=== PATIENT | male | born 1990 | race Caucasian/White ===

== ENCOUNTER 2017-01-29 14:59 | Emergency (ER) | payer OTHER ==
[2017-01-29] MEDS ORDERED: SODIUM CHLORIDE 0.9% 1,000 ML IV STA ×2 (15:56)
[2017-01-29] MEDS ORDERED: ONDANSETRON ODT 4 MG TAB PO STA (15:56)
[2017-01-29] MEDS ORDERED: DIPH,PERTUS(ACELL)TETVAC-LF 0.5 ML VIAL IM ONE (16:02)
[2017-01-29] MEDS ORDERED: ceFAZolin 1,000 MG in DEXTROSE/WATER 1 50ML.BAG IVPB STA (16:02)
--- NOTE | 2017-01-29 16:06 | ED ---
General Adult HPI - General Chief complaint: Wound/Laceration Stated complaint: lac left arm Time Seen by Provider: 01/29/17 15:55 Source: patient, RN notes reviewed Mode of arrival: ambulatory Limitations: no limitations - History of Present Illness Initial comments: Patient 26-year-old male who presents emergency room today with chief complaint of laceration to the left forearm. He does admit that he was helping a friend with a piece of sheet metal when it actually caused a laceration to the volar aspect. He does admit that he immediately put pressure and covered the area. He states is unsure of his tetanus status. He does admit that he is feeling somewhat lightheaded dizzy at this time. He denies any other complaints or symptoms. Patient denies any recent fever, chills, shortness of breath, chest pain, back pain, abdominal pain, nausea or vomiting, numbness or tingling, dysuria or hematuria, constipation or diarrhea, headaches or visual changes, or any other complaints. - Related Data Home Medications Medication Instructions Recorded Confirmed No Known Home Medications [No 01/29/17 01/29/17 Known Home Medications] Allergies Allergy/AdvReac Type Severity Reaction Status Date / Time Penicillins Allergy Unknown Verified 01/29/17 16:09 Review of Systems ROS Statement: Those systems with pertinent positive or pertinent negative responses have been documented in the HPI. ROS Other: All systems not noted in ROS Statement are negative. Past Medical History Past Medical History: No Reported History History of Any Multi-Drug Resistant Organisms: None Reported Past Surgical History: Orthopedic Surgery Additional Past Surgical History / Comment(s): left knee Past Psychological History: No Psychological Hx Reported Smoking Status: Current every day smoker Past Alcohol Use History: Occasional Past Drug Use History: Marijuana General Exam - General Exam Comments Initial Comments: General: The patient is awake and alert, in no distress, and does not appear acutely ill. Eye: Pupils are equal, round and reactive to light, extra-ocular movements are intact. No nystagmus. There is normal conjunctiva bilaterally. No signs of icterus. Ears, nose, mouth and throat: There are moist mucous membranes and no oral lesions. Neck: The neck is supple, there is no tenderness or JVD. Cardiovascular: There is a regular rate and rhythm. No murmur, rub or gallop is appreciated. Respiratory: Lungs are clear to auscultation, respirations are non-labored, breath sounds are equal. No wheezes, stridor, rales, or rhonchi. Musculoskeletal: Does have a urgent linear laceration to the volar aspect of her left wrist. There is exposed tendons. No active bleeding currently. Faint distal radial pulse. Cap refill less than 2 seconds. Sensations intact. Patient does show some range of motion with both flexion and extension at the left wrist. Does show some decreased flexion and extension at the fourth and fifth digits. Strength 5/5. Sensation intact. Neurological: A&O x 3. CN II-XII intact, There are no obvious motor or sensory deficits. Coordination appears grossly intact. Speech is normal. Skin: Skin is warm and dry and no rashes or lesions are noted. Psychiatric: Cooperative, appropriate mood & affect, normal judgment. Limitations: no limitations Course Vital Signs 01/29/17 15:03 Temperature 98.1 F Pulse Rate 63 Respiratory 18 Rate Blood Pressure 118/56 O2 Sat by Pulse 98 Oximetry - Reevaluation(s) Reevaluation #1: 01/29/17 16:18 Physician assistant public defender Jesus Manuel Soliz and was at bedside to evaluate patient and will contact hand specialist. 01/29/17 16:40 Physician assistant public defender Jesus Manuel Soliz and did speak with orthopedic butcher scullion who recommends transfer for hand specialist. 01/29/17 16:45 Case was discussed with Arthur Sood will accept the patient being transferred by EMS. Medical Decision Making - Medical Decision Making Patient 26-year-old male presenting today with a laceration to the left forearm. Does show extensive tendon lacerations he does have decreased range of motion of the second through fifth digits with flexion. Case was discussed and seen by orthopedics here in the emergency room and recommended transfer for hand specialty. Patient did have IV started given 500 mL bolus along with 1 g of Ancef. Patient's tetanus updated here in emergency room. Patient has been updated of need for transfer is aware of the plan. - Lab Data Result diagrams: 01/29/17 16:04 01/29/17 16:04 Lab Results 01/29/17 01/29/17 01/29/17 Range/Units 16:04 16:04 16:04 WBC 16.4 H (3.8-10.6) k/uL RBC 4.12 L (4.30-5.90) m/uL Hgb 13.9 (13.0-17.5) gm/dL Hct 38.2 L (39.0-53.0) % MCV 92.5 (80.0-100.0) fL MCH 33.8 (25.0-35.0) pg MCHC 36.5 (31.0-37.0) g/dL RDW 12.0 (11.5-15.5) % Plt Count 278 (150-450) k/uL Neutrophils % 86 % Lymphocytes % 8 % Monocytes % 4 % Eosinophils % 1 % Basophils % 1 % Neutrophils # 14.1 H (1.3-7.7) k/uL Lymphocytes # 1.3 (1.0-4.8) k/uL Monocytes # 0.6 (0-1.0) k/uL Eosinophils # 0.1 (0-0.7) k/uL Basophils # 0.1 (0-0.2) k/uL PT 10.6 (9.0-12.0) sec INR 1.0 (<1.1) APTT 23.0 (22.0-30.0) sec Sodium 139 (137-145) mmol/L Potassium 3.8 (3.5-5.1) mmol/L Chloride 101 (98-107) mmol/L Carbon Dioxide 28 (22-30) mmol/L Anion Gap 10 mmol/L BUN 18 (9-20) mg/dL Creatinine 0.80 (0.66-1.25) mg/dL Est GFR (MDRD) Af Amer >60 (>60 ml/min/1.73 sqM) Est GFR (MDRD) Non-Af >60 (>60 ml/min/1.73 sqM) Glucose 85 (74-99) mg/dL Calcium 9.9 (8.4-10.2) mg/dL Total Bilirubin 0.7 (0.2-1.3) mg/dL AST 23 (17-59) U/L ALT 31 (21-72) U/L Alkaline Phosphatase 49 (38-126) U/L Total Protein 6.9 (6.3-8.2) g/dL Albumin 4.7 (3.5-5.0) g/dL Disposition Clinical Impression: Flexor tendon laceration of forearm with open wound, Laceration Disposition: OTHER INSTITUTION NOT DEFINED Condition: Stable Referrals: Jose De Jesus Shaffer III, MD [Primary Care Provider] - 1-2 days Time of Disposition: 16:46 (Transferred to [facility] by EMS) - Out of Hospital Transfer - Req. Specs Out of Hospital Transfer - Requested Specifics: Other Emergency Center ([facility])
[2017-01-29 16:20] LABS: Basophils # (A) 0.1 k/uL (0-0.2); Basophils % (A) 1 %; CH 33.6; CHCM 36.5; Eosinophils # (A) 0.1 k/uL (0-0.7); Eosinophils % (A) 1 %; HCT 38.2 % (39.0-53.0); HDW 2.46; HGB 13.9 gm/dL (13.0-17.5); Luc # (Auto) 0.17; Luc % (Auto) 1; Lymphocytes # (A) 1.3 k/uL (1.0-4.8); Lymphocytes % (A) 8 %; MCH 33.8 pg (25.0-35.0); MCHC 36.5 g/dL (31.0-37.0); MCV 92.5 fL (80.0-100.0); Mean Platelet Volume 7.8; Monocytes # (A) 0.6 k/uL (0-1.0); Monocytes % (A) 4 %; Neutrophils # (A) 14.1 k/uL (1.3-7.7); Neutrophils % (A) 86 %; RBC 4.12 m/uL (4.30-5.90); WBC 16.4 k/uL (3.8-10.6); WBC (Perox) 15.65
[2017-01-29 16:25] LABS: Prothrombin Time 10.6 sec (9.0-12.0)
[2017-01-29 16:26] LABS: ALT 31 U/L (21-72); AST 23 U/L (17-59); Alkaline Phosphatase 49 U/L (38-126); Anion Gap 10 mmol/L; Blood Urea Nitrogen 18 mg/dL (9-20); Calcium 9.9 mg/dL (8.4-10.2); Carbon Dioxide 28 mmol/L (22-30); Chloride 101 mmol/L (98-107); Glucose 85 mg/dL (74-99); Non-African American GFR(MDRD) >60 (>60 ml/min/1.73 sqM); Potassium 3.8 mmol/L (3.5-5.1); Sodium 139 mmol/L (137-145); Total Bilirubin 0.7 mg/dL (0.2-1.3); Total Protein 6.9 g/dL (6.3-8.2)
[2017-01-29 17:54] VITALS: BP 132/61; PULSE 60; RESP 18; TEMP 98.3
== END 2017-01-29 17:50 | disposition short-term general hospital (02) ==
LOC: EC 14:59
DX: S56.222A Laceration of other flexor muscle, fascia and tendon at forearm level, left arm, initial encounter (principal); F17.200 Nicotine dependence, unspecified, uncomplicated; Z88.0 Allergy status to penicillin; W26.8XXA Contact with other sharp object(s), not elsewhere classified, initial encounter; Y93.89 Activity, other specified
CPT/HCPCS: 99284; 96365; 90471; 96361; 36415; 80053; 85025; 85610; 85730; 90715; J0690

== ENCOUNTER 2019-03-07 10:45 | Day surgery (SDC) | payer BC, OTHER ==
[2019-02-28 12:50] VITALS: BMI 24.3
--- NOTE | 2019-03-06 11:50 | P.GSHP ---
History of Present Illness H&P Date: 03/06/19 Chief Complaint: Right renal colic The patient is a 28-year-old white male with no prior history of urolithiasis. He presents with a one-month history of intermittent right flank pain radiating to the right lower quadrant. A computed tomography scan on February 04 showed a 5 mm right renal pelvic calculus, and this was seen on a plain radiograph on February 16. Alternative treatment options were reviewed, and he has elected to undergo ESWL. - Constitutional Constitutional: Denies chills, Denies fever - Gastrointestinal Gastrointestinal: Reports nausea, Reports vomiting - Genitourinary (Female) Genitourinary: Reports hematuria, Reports kidney stones Past Medical History Past Medical History: No Reported History Additional Past Medical History / Comment(s): KIDNEY STONES History of Any Multi-Drug Resistant Organisms: None Reported Past Surgical History: Orthopedic Surgery Additional Past Surgical History / Comment(s): left knee SX. LT WRIST RECONSTRUCTIVE SX Past Anesthesia/Blood Transfusion Reactions: Postoperative Nausea & Vomiting (PONV) Smoking Status: Current every day smoker - Past Family History Mother Family Medical History: No Reported History Medications and Allergies Home Medications Medication Instructions Recorded Confirmed Type No Known Home Medications 01/29/17 01/29/17 History Allergies Allergy/AdvReac Type Severity Reaction Status Date / Time Penicillins Allergy Unknown Verified 02/28/19 12:41 Surgical - Exam - General well developed, well nourished, no distress - Neck no masses, trachea midline - Respiratory normal respiratory effort, clear to auscultation - Cardiovascular Rhythm: regular Abnormal Heart Sounds: no systolic murmur, no diastolic murmur, no rub, no S3 Gallop, no S4 Gallop, no click, no other - Abdomen Abdomen: soft, non tender, no guarding, no rigid, no rebound - Genitourinary normal penis with no external lesions, testicles non-tender - Psychiatric oriented to time, oriented to person, oriented to place, speech is normal, memory intact Results - Imaging Abdominal x-ray: report reviewed, image reviewed CT scan - abdomen: report reviewed, image reviewed Assessment and Plan (1) Calculus of kidney Status: Acute Code(s): N20.0 - CALCULUS OF KIDNEY SNOMED Code(s): 65410933 Plan: Right extracorporal shockwave lithotripsy (ESWL). The procedure is been reviewed in detail with the patient. Potential risks were reviewed, which include anesthesia, hematuria, renal contusion, perinephric hematoma, treatment failure, incomplete fragmentation, and [place]strasse. He is aware of the possible need for secondary treatment.
[~2019-03-07 10:45] MED LIST: Pre Op ABX Message 1 EACH MISC MISCELLANE ONE
[2019-03-07 11:09] VITALS: TEMP 97.8
[2019-03-07] MEDS ORDERED: LACTATED RINGERS 1,000 ML IV ONE (11:09)
[2019-03-07] MEDS ORDERED: LIDOCAINE 1% 20 ML VIAL (10MG/ML) FOR IV START INTRADERMA ONE (11:09)
[2019-03-07] MEDS ORDERED: ONDANSETRON 4 MG/2 ML VIAL IVP ONE (11:16)
--- NOTE | 2019-03-07 11:37 | XR ---
EXAMINATION TYPE: XR KUB DATE OF EXAM: 03/07/2019 CLINICAL DATA: 28-year-old male preop, [facility] COMPARISON: None FINDINGS: Nonobstructive bowel gas pattern. No significant stool burden. 8 mm calcification density at the right paramedian mid abdomen. IMPRESSION: An 8 mm calculus at the right paramedian mid abdomen could be in the upper right ureter.
[2019-03-07] MEDS ORDERED: fentaNYL (PF) 50 MCG/ML 2 ML AMP ONE (12:40)
[2019-03-07] MEDS ORDERED: PROPOFOL 10 MG/ML 20 ML VIAL IV ONE (12:40)
[2019-03-07] MEDS ORDERED: MIDAZOLAM 2 MG/2 ML VIAL ONE (12:40)
--- NOTE | 2019-03-07 13:27 | P.OP ---
Date of Procedure: 03/07/19 Preoperative Diagnosis: Right renal calculus Postoperative Diagnosis: Right renal calculus Procedure(s) Performed: Extracorporeal shockwave lithotripsy of right renal calculus Anesthesia: MAC Surgeon: Marcin Reina Urine output (ml): 0 Pathology: none sent Condition: stable Disposition: PACU Indications for Procedure: The patient is a 28-year-old male with intermittent right flank pain secondary to a 5 mm calculus located in the region of the right renal pelvis. Treatment o ptions were reviewed with Dr. Kwong and the patient has elected to proceed with ESWL. Description of Procedure: The patient was taken the operating suite and placed in the supine position on the fluoroscopy table. The right renal calculus was localized using biplanar fluoroscopy. Intravenous sedation was given. Lithotripsy was performed using the Dornier compact delta unit. Patient received 2500 shocks at level 5 at a rate of 80 shocks per minute. A 2 minute pause was taken after 200 shocks. There appeared to be good fragmentation of the calculus. The patient was returned to the recovery room in satisfactory condition following procedure. He will be seen by Dr. Kwong in 1 week at which time a KUB will be obtained.
[2019-03-07 14:13] VITALS: BP 118/75; PULSE 52; RESP 16
== END 2019-03-07 14:15 | disposition home or self-care (01) ==
LOC: ORWHC2ENDO 10:45
PROVIDERS: ATTEND Urology
DX: N20.0 Calculus of kidney (principal); K21.9 Gastro-esophageal reflux disease without esophagitis; F17.210 Nicotine dependence, cigarettes, uncomplicated; Z79.899 Other long term (current) drug therapy; Z88.0 Allergy status to penicillin
CPT/HCPCS: 50590; 74018; J2250; J2405; J3010; J2704

== ENCOUNTER → 2019-03-13 | Outpatient (CLI) | payer BC ==
--- NOTE | 2019-03-13 15:26 | XR ---
EXAMINATION TYPE: XR abdomen 1V DATE OF EXAM: 03/13/2019 COMPARISON: 03/07/2019 HISTORY: Renal calculus. Pain. TECHNIQUE: Single view FINDINGS: There is no sign of intestinal obstruction or pneumoperitoneum. Fecal pattern is normal. I see no pathologic calcifications over the kidneys. IMPRESSION: Nonacute abdomen. There is clearing of calcification over the right upper quadrant compar ed to last exam.
== END | disposition home or self-care (01) ==
LOC: RADXRMAIN 14:53
PROVIDERS: ATTEND Urology
DX: N20.0 Calculus of kidney (principal)
CPT/HCPCS: 74018

== ENCOUNTER 2019-09-09 07:34 | Emergency (ER) | payer BC, OTHER ==
[2019-09-09 07:39] VITALS: TEMP 97.8
[2019-09-09] MEDS ORDERED: FAMOTIDINE 20 MG/2 ML VIAL IV STA (07:44)
[2019-09-09] MEDS ORDERED: DICYCLOMINE 10 MG/ML 2 ML AMP IM STA (07:44)
[2019-09-09] MEDS ORDERED: SODIUM CHLORIDE 0.9% 2,000 ML IV STA (07:44)
[2019-09-09] MEDS ORDERED: METOCLOPRAMIDE 5 MG/ML 2 ML VIAL IVP STA (07:44)
--- NOTE | 2019-09-09 07:53 | ED ---
General Adult HPI - General Chief complaint: Abdominal Pain Stated complaint: vomiting Time Seen by Provider: 09/09/19 07:40 Source: patient, RN notes reviewed Mode of arrival: ambulatory Limitations: no limitations - History of Present Illness Initial comments: Patient is a pleasant 29-year-old male presenting to the emergency Department with complaints of nausea vomiting and some diarrhea. Onset of symptoms was around 3:30. Patient questions if he could've had some bad chicken soup last night. Patient did have similar symptoms last year and was diagnosed with ordering failure. Patient also had similar symptoms in either 2004 for 2009 while in [facility] and was diagnosed with rhabdomyolysis. Patient has vomited approximately 10 times. Patient has had approximately 4 episodes of vomiting. Patient has some mild discomfort of the upper abdomen, more on the right side. - Related Data Home Medications Medication Instructions Recorded Confirmed Tamsulosin HCl [Flomax] 0.4 mg PO DAILY 03/07/19 03/07/19 Previous Rx's Medication Instructions Recorded Ondansetron Odt [Zofran Odt] 4 mg PO Q8HR PRN #10 tab 09/09/19 Allergies Allergy/AdvReac Type Severity Reaction Status Date / Time Penicillins Allergy Unknown Verified 09/09/19 07:35 Review of Systems ROS Statement: Those systems with pertinent positive or pertinent negative responses have been documented in the HPI. ROS Other: All systems not noted in ROS Statement are negative. Constitutional: Denies: fever Eyes: Denies: eye pain ENT: Denies: ear pain Respiratory: Denies: cough Cardiovascular: Denies: chest pain Endocrine: Denies: fatigue Gastrointestinal: Reports: as per HPI, nausea, vomiting, diarrhea Genitourinary: Denies: dysuria Musculoskeletal: Denies: back pain Skin: Denies: rash Neurological: Denies: weakness Past Medical History Past Medical History: No Reported History Additional Past Medical History / Comment(s): KIDNEY STONES History of Any Multi-Drug Resistant Organisms: None Reported Past Surgical History: Orthopedic Surgery Additional Past Surgical History / Comment(s): left knee SX. LT WRIST RECONSTRUCTIVE SX Past Anesthesia/Blood Transfusion Reactions: Postoperative Nausea & Vomiting (PONV) Past Psychological History: No Psychological Hx Reported Smoking Status: Current every day smoker Past Alcohol Use History: None Reported Past Drug Use History: Marijuana - Past Family History Mother Family Medical History: No Reported History General Exam Limitations: no limitations General appearance: alert, in no apparent distress Head exam: Present: normocephalic Eye exam: Present: normal appearance Neck exam: Present: normal inspection Respiratory exam: Present: normal lung sounds bilaterally Cardiovascular Exam: Present: regular rate, normal rhythm Expanded Peripheral pulses: 2+: Posterior Tibialis (R), Posterior Tibialis (L), Dorsalis Pedis (R), Dorsalis Pedis (L) GI/Abdominal exam: Present: soft, tenderness (Mild epigastric and right upper quadrant tenderness to palpation). Absent: distended Extremities exam: Present: normal inspection Neurological exam: Present: alert Psychiatric exam: Present: normal affect, normal mood Skin exam: Present: normal color Course Vital Signs 09/09/19 09/09/19 07:35 09:24 Temperature 97.8 F Pulse Rate 51 L 53 L Respiratory 18 16 Rate Blood Pressure 128/74 101/49 O2 Sat by Pulse 100 99 Oximetry Medical Decision Making - Medical Decision Making Patient reevaluated and feeling much better. Patient is comfortable with discharge home. Abdomen soft and nontender. Patient updated on results and need for follow-up. Patient is agreeable to Zofran prescription. - Lab Data Result diagrams: 09/09/19 07:55 09/09/19 07:55 Lab Results 09/09/19 09/09/19 09/09/19 Range/Units 07:55 07:55 07:55 WBC 19.0 H (3.8-10.6) k/uL RBC 4.84 (4.30-5.90) m/uL Hgb 16.0 (13.0-17.5) gm/dL Hct 47.5 (39.0-53.0) % MCV 98.2 (80.0-100.0) fL MCH 33.2 (25.0-35.0) pg MCHC 33.8 (31.0-37.0) g/dL RDW 11.8 (11.5-15.5) % Plt Count 248 (150-450) k/uL Neutrophils % 93 % Lymphocytes % 3 % Monocytes % 2 % Eosinophils % 1 % Basophils % 0 % Neutrophils # 17.6 H (1.3-7.7) k/uL Lymphocytes # 0.5 L (1.0-4.8) k/uL Monocytes # 0.4 (0-1.0) k/uL Eosinophils # 0.2 (0-0.7) k/uL Basophils # 0.0 (0-0.2) k/uL PT 10.0 (9.0-12.0) sec INR 1.0 (<1.2) APTT 23.1 (22.0-30.0) sec Sodium 140 (137-145) mmol/L Potassium 5.0 (3.5-5.1) mmol/L Chloride 102 (98-107) mmol/L Carbon Dioxide 28 (22-30) mmol/L Anion Gap 10 mmol/L BUN 22 H (9-20) mg/dL Creatinine 0.75 (0.66-1.25) mg/dL Est GFR (CKD-EPI)AfAm >90 (>60 ml/min/1.73 sqM) Est GFR (CKD-EPI)NonAf >90 (>60 ml/min/1.73 sqM) Glucose 99 (74-99) mg/dL Calcium 10.1 (8.4-10.2) mg/dL Total Bilirubin 1.3 (0.2-1.3) mg/dL AST 34 (17-59) U/L ALT 21 (4-49) U/L Alkaline Phosphatase 51 (38-126) U/L Creatine Kinase 398 H (55-170) U/L Total Protein 8.5 H (6.3-8.2) g/dL Albumin 5.3 H (3.5-5.0) g/dL Amylase 104 (30-110) U/L Lipase 237 (23-300) U/L - Radiology Data Radiology results: image reviewed (Abdominal x-ray shows some air-fluid levels without bowel distention. Correlate for ileus or enteritis.) Disposition Clinical Impression: Vomiting Disposition: HOME SELF-CARE Condition: Stable Instructions (If sedation given, give patient instructions): Acute Nausea and Vomiting (ED) Additional Instructions: Please follow-up with primary care physician in the next couple days for recheck. Return for uncontrolled vomiting, increased abdominal discomfort, fevers, worsening symptoms or other concerns. Prescription sent to [facility] pharmacy Prescriptions: Ondansetron Odt [Zofran Odt] 4 mg PO Q8HR PRN #10 tab PRN Reason: Nausea Is patient prescribed a controlled substance at d/c from ED?: No Referrals: Rogelio Fong MD [Primary Care Provider] - 1-2 days Time of Disposition: 09:35
[2019-09-09 08:10] LABS: Basophils % (A) 0 %; Eosinophils # (A) 0.2 k/uL (0-0.7); Eosinophils % (A) 1 %; HCT 47.5 % (39.0-53.0); Lymphocytes # (A) 0.5 k/uL (1.0-4.8); Lymphocytes % (A) 3 %; MCH 33.2 pg (25.0-35.0); MCHC 33.8 g/dL (31.0-37.0); MCV 98.2 fL (80.0-100.0); Mean Platelet Volume 7.7; Monocytes # (A) 0.4 k/uL (0-1.0); Monocytes % (A) 2 %; Neutrophils # (A) 17.6 k/uL (1.3-7.7); Neutrophils % (A) 93 %; Platelet Count 248 k/uL (150-450); RBC 4.84 m/uL (4.30-5.90); RDW 11.8 % (11.5-15.5)
[2019-09-09 08:14] LABS: ALT 21 U/L (4-49); AST 34 U/L (17-59); African American GFR (CKD) >90 (>60 ml/min/1.73 sqM); Albumin 5.3 g/dL (3.5-5.0); Alkaline Phosphatase 51 U/L (38-126); Amylase 104 U/L (30-110); Anion Gap 10 mmol/L; Blood Urea Nitrogen 22 mg/dL (9-20); Calcium 10.1 mg/dL (8.4-10.2); Carbon Dioxide 28 mmol/L (22-30); Chloride 102 mmol/L (98-107); Creatine Kinase 398 U/L (55-170); Glucose 99 mg/dL (74-99); Non-African American GFR(CKD) >90 (>60 ml/min/1.73 sqM); Sodium 140 mmol/L (137-145); Total Bilirubin 1.3 mg/dL (0.2-1.3); Total Protein 8.5 g/dL (6.3-8.2)
[2019-09-09 08:16] LABS: Partial Thromboplastin Time 23.1 sec (22.0-30.0)
--- NOTE | 2019-09-09 08:34 | XR ---
KUB HISTORY: Right upper quadrant pain with nausea Frontal KUB and 2 images correlated to prior abdomen dated 03/13/2019 Lung bases are clear. There is no pathologic calcification. There are air-fluid levels without bowel distention. No pneumoperitoneum. Bone mineralization is normal. IMPRESSION: Correlate for ileus, enteritis.
[2019-09-09 09:06] LABS: Appearance,Urine Clear (Clear); Bilirubin,Urine Negative (Negative); Blood,Urine Negative (Negative); Color,Urine Orange; Glucose,Urine (UA) Negative (Negative); Hyaline Casts,Urine 15 /lpf (0-2); Ketones,Urine 2+ (Negative); Leukocyte Esterase,Urine Negative (Negative); Mucus,Urine Many /hpf; Nitrite,Urine Negative (Negative); Protein,Urine 2+ (Negative); Specific Gravity,Urine 1.039 (1.001-1.035); Squamous Epithelial Cell,Urine 1 /hpf (0-4); WBC,Urine 1 /hpf (0-5)
[2019-09-09 09:31] VITALS: BP 101/49; PULSE 53; RESP 16
== END 2019-09-09 09:52 | disposition home or self-care (01) ==
LOC: EC 07:34
DX: R11.2 Nausea with vomiting, unspecified (principal); R19.7 Diarrhea, unspecified; R10.9 Unspecified abdominal pain; F17.200 Nicotine dependence, unspecified, uncomplicated; Z88.0 Allergy status to penicillin; Z87.442 Personal history of urinary calculi
CPT/HCPCS: 36415; 80053; 82150; 82550; 83690; 85025; 85610; 85730; 81001; 74018; 99284; 96374; 96375; 96372; 96361 ×2; J0500; J2765

== ENCOUNTER 2023-11-28 11:03 | Emergency (ER) | payer OTHER ==
[2023-11-28 11:15] VITALS: RESP 18
--- NOTE | 2023-11-28 11:25 | ED ---
Wound/Laceration HPI - General Chief Complaint: Wound/Laceration Stated Complaint: L finger lac Time Seen by Provider: 11/28/23 11:14 Source: patient, RN notes reviewed Mode of arrival: ambulatory Limitations: no limitations - History of Present Illness Initial Comments: This is a 33-year-old male who presents to the emergency department for a laceration to the left index finger. States that he became frustrated and threw a roof shar, and the hook of it went through his left index finger. This is very painful. Tetanus vaccine is up-to-date. - Related Data Home Medications Medication Instructions Recorded Confirmed Tamsulosin HCl [Flomax] 0.4 mg PO DAILY 03/07/19 03/07/19 Previous Rx's Medication Instructions Recorded Ondansetron Odt [Zofran Odt] 4 mg PO Q8HR PRN #10 tab 09/09/19 cefUROXime axetiL [Ceftin] 500 mg PO BID 7 Days #14 tab 11/28/23 Allergies Allergy/AdvReac Type Severity Reaction Status Date / Time Penicillins Allergy Unknown Verified 11/28/23 11:13 Review of Systems ROS Statement: Those systems with pertinent positive or pertinent negative responses have been documented in the HPI. ROS Other: All systems not noted in ROS Statement are negative. Past Medical History Past Medical History: No Reported History Additional Past Medical History / Comment(s): KIDNEY STONES History of Any Multi-Drug Resistant Organisms: None Reported Past Surgical History: Orthopedic Surgery Additional Past Surgical History / Comment(s): left knee SX. LT WRIST RECONSTRUCTIVE SX Past Anesthesia/Blood Transfusion Reactions: Postoperative Nausea & Vomiting (PONV) Past Psychological History: No Psychological Hx Reported Smoking Status: Vaper Past Alcohol Use History: None Reported Past Drug Use History: Marijuana - Past Family History Mother Family Medical History: No Reported History General Exam Limitations: no limitations General appearance: alert, in no apparent distress Head exam: Present: atraumatic, normocephalic, normal inspection Respiratory exam: Present: normal lung sounds bilaterally. Absent: respiratory distress, wheezes, rales, rhonchi, stridor Cardiovascular Exam: Present: regular rate, normal rhythm, normal heart sounds. Absent: systolic murmur, diastolic murmur, rubs, gallop, clicks Extremities exam: Present: other (Large laceration to the palmar aspect of the left index finger with visible subcutaneous tissue.) Neurological exam: Present: alert, oriented X3, CN II-XII intact Psychiatric exam: Present: normal affect, normal mood Course Vital Signs 11/28/23 11/28/23 11:12 13:01 Temperature 98.4 F 98.1 F Pulse Rate 67 71 Respiratory 18 18 Rate Blood Pressure 147/94 139/87 O2 Sat by Pulse 99 99 Oximetry Procedures - Laceration Laceration #1 Consent Obtained: verbal consent Indication: laceration Site: other (Left index finger) Size (cm): 8 Description: linear, stellate, flap Depth: simple, single layer Anesthetic Used: lidocaine 1% Anesthesia Technique: local infiltration Amount (mls): 5 Pre-repair: wound explored, irrigated extensively Type of Sutures: nylon Size of Sutures: 4-0 Number of Sutures: 12 Technique: simple, interrupted Medical Decision Making - Medical Decision Making This is a 33 year old male who presents to the emergency department for a laceration. Was pt. sent in by a medical professional or institution? @ -No Did you speak to anyone other than the patient for history? @ -No Did you review nursing and triage notes? @ -Yes, and I agree, it is accurate with regards to the patient's symptoms. Were old charts reviewed? @ -No Differential Diagnosis? @ -Differential Laceration: Abrasion, burn, abscess, cellulitis, this is not meant to be an all-inclusive list. EKG interpreted by me (3pts min.)? @ -Not obtained X-rays interpreted by me (1pt min.)? @ -X-ray of the left index finger obtained. My interpretation identifies no acute fractures. CT interpreted by me (1pt min.)? @ -Not obtained U/S interpreted by me (1pt. min.)? @ -Not obtained What testing was considered but not performed? (CT, X-rays, U/S, labs)? Why? @ -None What meds were considered but not given? Why? @ -None Did you discuss the management of the patient with other professionals? @ -No Did you reconcile home meds? @ -No Was smoking cessation discussed for >3mins.? @ -I discussed smoking cessation for greater than 3 minutes. The risk of smoking were discussed with the patient including but not limited to risks of cancer, stroke, coronary artery disease and COPD. Also discussed with patient were multiple methods of quitting smoking. Lastly we discussed the financial cost of smoking. Was critical care preformed (if so, how long)? @ -No Were there social determinants of health that impacted care today? How? (Homelessness, low income, unemployed, alcoholism, drug addiction, transportation, low edu. Level, literacy, decrease access to med. care, fci, rehab)? @ -No Was there de-escalation of care discussed even if they declined? (Discuss DNR or withdrawal of care, Hospice)? @ -No What co-morbidities impacted this encounter? (DM, HTN, Smoking, COPD, CAD, Cancer, CVA, Hep., AIDS, mental health diagnosis, sleep apnea, morbid obesity)? @ -Smoking Was patient admitted / discharged? @ -Discharged. X-ray of the left index finger demonstrates a laceration without any acute osseous abnormality. The wound was thoroughly cleansed and repaired with sutures. Tetanus vaccine is already up-to-date. Patient states that the roof shar he was injured with was very dirty and given the depth of the wound, he was started on antibiotics for prophylactic management. Prescription for cefuroxime provided with dosing instructions reviewed. Advised ibuprofen and Tylenol as needed for pain relief and returning in 7 to 10 days for suture removal. Undiagnosed new problem with uncertain prognosis? @ -None Drug Therapy requiring intensive monitoring for toxicity (Heparin, Nitro, Insulin, Cardizem)? @ -None Were any procedures done? @ -Laceration repair with sutures Diagnosis/symptom? @ -Laceration Acute, or Chronic, or Acute on Chronic? @ -Acute Uncomplicated (without systemic symptoms) or Complicated (systemic symptoms)? @ -Uncomplicated Side effects of treatment? @ -None Exacerbation, Progression, or Severe Exacerbation] @ -Not applicable Poses a threat to life or bodily function? @ -No Return precautions reviewed in depth, the patient is instructed to return to the emergency department with any new, worsening, or concerning symptoms. Patient verbalized understanding. This case was discussed in detail with the attending ED physician, Dr. Orourke. Presentation, findings, and treatment plan discussed in detail as well. - Radiology Data Radiology results: report reviewed, image reviewed Disposition Clinical Impression: Laceration, Nicotine dependence Disposition: HOME SELF-CARE Instructions (If sedation given, give patient instructions): Care For Your Stitches (ED) Additional Instructions: Return to the emergency department with any new, worsening, or concerning symptoms and in 7-10 days for removal of the stitches. Take the antibiotic as prescribed for 7 days. Alternate with ibuprofen and Tylenol as needed for pain relief. Follow up with your primary care provider in 1-2 days. Prescriptions: cefUROXime axetiL [Ceftin] 500 mg PO BID 7 Days #14 tab Is patient prescribed a controlled substance at d/c from ED?: No Referrals: Rogelio Fong MD [Primary Care Provider] - 1-2 days Time of Disposition: 12:41
[2023-11-28] MEDS: LIDOCAINE 1% INJ 10MG/ML (20 ML MDV) SQ ONE (11:37)
[2023-11-28] MEDS: MORPHINE SULFATE 4 MG/ML SYRINGE IM STA (11:38)
[2023-11-28] MEDS: ONDANSETRON ODT 4 MG TAB PO STA (11:38)
[2023-11-28] MEDS: KETOROLAC 15 MG/ML 1 ML VIAL IM STA (11:38)
--- NOTE | 2023-11-28 12:10 | XR ---
EXAMINATION TYPE: XR finger LT DATE OF EXAM: 11/28/2023 Comparison: None TECHNIQUE: 3 views coned down onto the left index finger) disease Clinical History: 33-year-old male second digit laceration, pain, Injury Findings: There is a laceration along the radial aspect of the index finger at the level of the PIP joint. No r etained radiopaque foreign body. No acute fracture, subluxation, dislocation. Impression: Laceration radial aspect of the index finger at the level of the PIP joint. No acute osseous abnormal ity seen.
[2023-11-28] MEDS: ONDANSETRON 4 MG/2 ML VIAL IM STA (12:14)
[2023-11-28] MEDS: ONDANSETRON 4 MG ODT STARTER PACK 2 TAB BTL PO STA (12:51)
[2023-11-28] MEDS: ACET/COD 300 MG/30 MG STARTER PACK 6 TAB BTL PO STA (12:51)
[2023-11-28 13:15] VITALS: BP 139/87; PULSE 71; TEMP 98.1
== END 2023-11-28 13:03 | disposition home or self-care (01) ==
LOC: EC 11:03
DX: S61.211A Laceration without foreign body of left index finger without damage to nail, initial encounter (principal); F17.290 Nicotine dependence, other tobacco product, uncomplicated; Z88.0 Allergy status to penicillin; W45.8XXA Other foreign body or object entering through skin, initial encounter
CPT/HCPCS: 73140; 99283; 96372 ×3; 12004; J2270; J2405; J2001; J1885; S0119

== ENCOUNTER → 2024-06-02 | Outpatient (CLI) | payer OTHER ==
--- NOTE | 2024-06-04 14:47 | US ---
EXAMINATION TYPE: US liver DATE OF EXAM: 06/02/2024 COMPARISON: NONE CLINICAL INDICATION: Male, 34 years old with history of R94.5 ABNORMAL RESULTS OF LIVER FUNCTION STUD IES; Abnormal liver enzymes TECHNIQUE: Grayscale and color Doppler imaging of the right upper quadrant was performed. FINDINGS: EXAM MEASUREMENTS: Liver Length: 15.2 cm Gallbladder Wall: 0.2 cm CBD: 0.3 cm Right Kidney: 11.9 x 6.1 x 4.6 cm [employer] NOTES: Pancreas: wnl Liver: There is a complex cystic area within the right lobe liver measuring 2.8 x 3.0x 2.6 cm (good through transmission and posterior wall enhancement of the baum are irregular monitoring is recommen ded. Couple of tiny 1 cm cysts are present Gallbladder: wnl Evidence for sonographic Golden's sign: No CBD: wnl Right Kidney: wnl IMPRESSION: 1. Complex cyst within the liver with a couple of small simple appearing cysts. Monitoring this large complex cysts recommended follow-up ultrasound 6 months [facility] Mathis, , 06/04/2024 2:44 PM
== END | disposition home or self-care (01) ==
LOC: RADUSWWP 07:33
PROVIDERS: ATTEND Family Medicine
DX: K76.89 Other specified diseases of liver (principal); R94.5 Abnormal results of liver function studies
CPT/HCPCS: 76705

== ENCOUNTER → 2024-09-20 | Outpatient (CLI) | payer OTHER, BC ==
--- NOTE | 2024-09-20 17:57 | US ---
EXAMINATION TYPE: US kidneys/renal and bladder DATE OF EXAM: 09/20/2024 COMPARISON: NONE CLINICAL INDICATION: Male, 34 years old with history of R10.9 UNSPECIFIED ABDOMINAL PAIN R30.0 DYSURI A; TECHNIQUE: Grayscale imaging of the bilateral kidneys and urinary bladder: FINDINGS: EXAM MEASUREMENTS: Right Kidney: 12.0 x 5.3 x 5.8 cm Left Kidney: 11.5 x 5.3 x 5.6 cm Right Kidney: wnl Left Kidney: wnl Bladder: wnl Bilateral Jets seen: yes There is no evidence for hydronephrosis at this point in time. No nephrolithiasis is seen. No alec s are identified. The urinary bladder is anechoic. IMPRESSION: No evidence of obstructive uropathy or renal calculus. [facility], , 09/20/2024 5:54 PM
== END | disposition home or self-care (01) ==
LOC: RADUSWWP 16:19
PROVIDERS: ATTEND Family Medicine
DX: R30.0 Dysuria (principal); R10.9 Unspecified abdominal pain
CPT/HCPCS: 76770